=== PATIENT | male | born 1980 | race American Indian/Alaskan Native ===

== ENCOUNTER 2017-03-02 09:52 | Emergency (ER) | payer BC ==
[2017-03-02 10:07] VITALS: TEMP 97.9
--- NOTE | 2017-03-02 10:34 | C.PDOC ---
History Of Present Illness Oscar Adkins is a 36 y/o male, otherwise well, who presents complaining of right hand pain. States he punched a wall yesterday. No other complaints at this time. Denies any pain to the neck, back, or other area. Time Seen by Provider: 03/02/17 10:16 Chief Complaint (Nursing): Finger,Hand,&Wrist History Per: Patient History/Exam Limitations: no limitations Onset/Duration Of Symptoms: Days (x 2) Current Symptoms Are (Timing): Still Present Past Medical History Reviewed: Historical Data, Nursing Documentation, Vital Signs Vital Signs: Last Vital Signs Temp 97.9 F 03/02/17 10:03 Pulse 72 03/02/17 11:24 Resp 18 03/02/17 11:24 BP 110/70 03/02/17 11:24 Pulse Ox 100 03/02/17 11:26 - Medical History PMH: No Chronic Diseases Family History: States: Unknown Family Hx - Social History Hx Alcohol Use: Yes Hx Substance Use: Yes - Immunization History Hx Tetanus Toxoid Vaccination: No Hx Influenza Vaccination: No Hx Pneumococcal Vaccination: No Review Of Systems Except As Marked, All Systems Reviewed And Found Negative. Musculoskeletal: Positive for: Hand Pain (Right) Neurological: Negative for: Weakness, Numbness (and tingling) Physical Exam - Physical Exam Appears: Non-toxic, No Acute Distress Skin: Normal Color Head: Atraumatic, Normacephalic Extremity: Swelling (Significant swelling to the 3rd and 4th metacarpal phalangeal joints) Neurological/Psych: Oriented x3, Normal Speech ED Course And Treatment O2 Sat by Pulse Oximetry: 100 (RA) Pulse Ox Interpretation: Normal - Other Rad X-Ray Right Hand X-Ray: Interpreted by Me, Viewed By Me Interpretation: No fracture, no dislocation Medical Decision Making Medical Decision Making: Time: 10:26 Initial Impression: 36 year old male with right hand injury Initial Plan: * Tylenol 650 mg PO * X-Ray Right Hand X-Ray appears negative for fracture. Splint will be placed. Pt is medically stable and will be discharged home. Referral provided for orthopedist, Dr. Cruz. Counseling was provided regarding diagnosis and the need for follow up. There is agreement to discharge plan. Return to ER if symptoms persist or worsen. Disposition Counseled Patient/Family Regarding: Studies Performed, Diagnosis, Need For Followup, Rx Given - Disposition Referrals: Johny Cruz MD [Staff Provider] - Disposition: HOME/ ROUTINE Disposition Time: 11:14 Condition: STABLE Additional Instructions: Call Dr. Myers for final results at [phone] Prescriptions: Ibuprofen [Motrin] 600 mg PO TID #15 tab Instructions: [facility] (ED) Forms: [employer] (Lebanese) - POA Present On Arrival: None - Clinical Impression Clinical Impression: Boxers fracture - Scribe Statement The provider has reviewed the documentation as recorded by the Scribsteven Drummond All medical record entries made by the Scribe were at my direction and personally dictated by me. I have reviewed the chart and agree that the record accurately reflects my personal performance of the history, physical exam, medical decision making, and the department course for this patient. I have also personally directed, reviewed, and agree with the discharge instructions and disposition.
--- NOTE | 2017-03-02 11:24 | RAD ---
PROCEDURE: Right Hand Radiographs. HISTORY: PUNCHED THE WALL COMPARISON: None. FINDINGS: BONES: No evidence of acute displaced fracture nor dislocation. Questionable old healed fracture deformity of versus anatomic variation distal aspect right 5th metacarpal JOINTS: Normal. No osteoarthritic changes. SOFT TISSUES: Normal. OTHER FINDINGS: None. IMPRESSION: No evidence of acute displaced fracture nor dislocation. Questionable old healed fracture deformity versus anatomic variation distal aspect right 5th metacarpal.
[2017-03-02 11:25] VITALS: BP 110/70; PULSE 72; RESP 18
[2017-03-02 11:26] VITALS: O2SAT 100
== END 2017-03-02 11:35 | disposition home or self-care (01) ==
LOC: C.ER 09:52
DX: S62.308A Unspecified fracture of other metacarpal bone, initial encounter for closed fracture (principal); W22.01XA Walked into wall, initial encounter; Y92.89 Other specified places as the place of occurrence of the external cause

== ENCOUNTER 2017-06-03 14:13 | Emergency (ER) | payer BC ==
[2017-06-03 14:23] VITALS: TEMP 98.1; O2SAT 99; BMI 23.7
[2017-06-03] MEDS ORDERED: Apap-Butalbital-Caffeine 325-50-40mg Tab PO STA (14:53)
[2017-06-03] MEDS ORDERED: Apap-Butalbital-Caffeine 325-50-40mg Tab ONE (15:01)
--- NOTE | 2017-06-03 16:23 | C.PDOC ---
History Of Present Illness 37-year-old male, presents to the emergency department with complaints of two week duration of intermittent headaches, which he describes as frontal and radiating to back of head. Patient is taking Advil at home with no relief. No Hx of migraines. Denies weakness/numbness, vision change, sensory/vascular deficit, neck/back pain, slurred speech, LOC or head trauma. Time Seen by Provider: 06/03/17 14:38 Chief Complaint (Nursing): Headache History Per: Patient History/Exam Limitations: no limitations Past Medical History Reviewed: Historical Data, Nursing Documentation, Vital Signs Vital Signs: Last Vital Signs Temp 98.1 F 06/03/17 16:45 Pulse 67 06/03/17 16:45 Resp 20 06/03/17 16:45 BP 128/83 06/03/17 16:45 Pulse Ox 99 06/03/17 17:41 Family History: States: No Known Family Hx - Social History Hx Alcohol Use: Yes Hx Substance Use: Yes - Immunization History Hx Tetanus Toxoid Vaccination: No Hx Influenza Vaccination: No Hx Pneumococcal Vaccination: No Review Of Systems Constitutional: Negative for: Fever, Chills, Weakness Eyes: Negative for: Vision Change Gastrointestinal: Negative for: Nausea, Vomiting Neurological: Positive for: Headache. Negative for: Weakness, Numbness, Change in Speech, Dizziness Physical Exam - Physical Exam Appears: Non-toxic, No Acute Distress Skin: Normal Color, Warm, Dry, No Rash Head: Atraumatic, Normacephalic, Other (no temporal artery tenderness) Eye(s): bilateral: Normal Inspection, PERRL, EOMI Ear(s): Bilateral: Normal Nose: Normal Oral Mucosa: Moist Lips: Normal Appearing Throat: No Erythema, No Exudate Neck: Normal ROM, Supple Cardiovascular: Rhythm Regular, No Murmur Respiratory: Normal Breath Sounds, No Accessory Muscle Use Gastrointestinal/Abdominal: Soft, No Tenderness Back: Normal Inspection, No CVA Tenderness Extremity: Normal ROM, No Tenderness, No Deformity, No Swelling Neurological/Psych: Oriented x3, Normal Speech, Normal Motor, Normal Sensation Gait: Steady ED Course And Treatment O2 Sat by Pulse Oximetry: 99 (RA) Pulse Ox Interpretation: Normal - CT Scan/US CT HEAD Other Rad Studies (CT/US): Read By Radiologist, Radiology Report Reviewed CT/US Interpretation: Accession No. : [id number]. Patient Name / ID : HOLLIE SMITH / [id number]. Exam Date : 06/03/2017 16:12:44 ( Approved ). Study Comment : Sex / Age : M / 37Y. Creator : Liv Vargas. Dictator : Ventura aCrolina MD. Torpedoman'S Mate : Mechanical Reliability Engineer : Ventura Carolina MD. Approver2 : Report Date : 06/03/2017 16:17:33. My Comment : . PROCEDURE: CT HEAD WITHOUT CONTRAST. HISTORY: Headache and fever. COMPARISON: None available. TECHNIQUE: Axial computed tomography images were obtained through the head/brain without intravenous contrast. Radiation dose: Total exam DLP = 820.43 mGy-cm. This CT exam was performed using one or more of the following dose reduction techniques: Automated exposure control, adjustment of the mA and/ or kV according to patient size, and/or use of iterative reconstruction technique. FINDINGS: HEMORRHAGE: No acute parenchymal, subarachnoid nor extra -axial hemorrhage. BRAIN: No mass effect or edema. No atrophy or chronic microvascular ischemic changes. VENTRICLES: No obstructive hydrocephalus. CALVARIUM: No acute calvarial fractures. PARANASAL SINUSES: Unremarkable as visualized. No significant inflammatory changes. MASTOID AIR CELLS: Unremarkable as visualized. No inflammatory changes. OTHER FINDINGS: None. IMPRESSION: No acute intracranial hemorrhage. Progress Note: CT head ordered and reviewed. Patient treated with Fioricet and Reglan. On re-evaluation, patient is resting comfortably, is tolerating PO, and pain has improved. Patient has no neurologic deficit, photophobia, rash, fever, or nuchal rigidity. Patient was instructed to follow up with physician/ clinic in 1-2 days. Disposition - Disposition Referrals: Jose Manuel Short MD [Staff Provider] - Disposition: HOME/ ROUTINE Disposition Time: 16:39 Condition: GOOD Additional Instructions: Follow up with the medical doctor within 1-2 days. Return if worsened. Prescriptions: Acetaminophen/Butalbital/Caf [Fioricet] 1 tab PO TID PRN #20 tab PRN Reason: Headache Metoclopramide [Reglan] 1 tab PO TID PRN #25 tab PRN Reason: Nausea/Vomiting Instructions: Headache, Adult Forms: [facility] (Luxembourgish), Work Excuse - Clinical Impression Clinical Impression: Headache - Scribe Statement The provider has reviewed the documentation as recorded by the Scribe (Dipesh Black) All medical record entries made by the Scribe were at my direction and personally dictated by me. I have reviewed the chart and agree that the record accurately reflects my personal performance of the history, physical exam, medical decision making, and the department course for this patient. I have also personally directed, reviewed, and agree with the discharge instructions and disposition.
--- NOTE | 2017-06-03 16:32 | CT ---
PROCEDURE: CT HEAD WITHOUT CONTRAST. HISTORY: Headache and fever COMPARISON: None available. TECHNIQUE: Axial computed tomography images were obtained through the head/brain without intravenous contrast. Radiation dose: Total exam DLP = 820.43 mGy-cm. This CT exam was performed using one or more of the following dose reduction techniques: Automated exposure control, adjustment of the mA and/or kV according to patient size, and/or use of iterative reconstruction technique. FINDINGS: HEMORRHAGE: No acute parenchymal, subarachnoid nor extra-axial hemorrhage. BRAIN: No mass effect or edema. No atrophy or chronic microvascular ischemic changes. VENTRICLES: No obstructive hydrocephalus. CALVARIUM: No acute calvarial fractures. PARANASAL SINUSES: Unremarkable as visualized. No significant inflammatory changes. MASTOID AIR CELLS: Unremarkable as visualized. No inflammatory changes. OTHER FINDINGS: None. IMPRESSION: No acute intracranial hemorrhage.
[2017-06-03 16:46] VITALS: BP 128/83; PULSE 67; RESP 20
== END 2017-06-03 16:48 | disposition home or self-care (01) ==
LOC: C.ER 14:13
DX: R51 Headache (principal)